=== PATIENT | female | born 1960 | race African-American/Black ===

== ENCOUNTER 2016-07-10 16:01 | Emergency (ER) | payer OTHER ==
[~2016-07-10] VITALS: Ht 172.7 cm; Wt 86.2 kg
--- NOTE | 2016-07-10 16:32 | ED NECK/BACK PAIN COMPLAINT ---
History of Present Illness General Chief Complaint: Lower Extremity Problems Stated Complaint: PT IS HAVING LOWER BACK PAIN Source: patient Exam Limitations: no limitations Vital Signs & Intake/Output Vital Signs & Intake/Output Vital Signs Date Time Temp Pulse Resp B/P B/P Pulse O2 O2 Flow FiO2 Mean Ox Delivery Rate 07/10 1851 97.9 71 18 154/75 97 Room Air 07/10 1617 97.2 92 18 147/93 97 Room Air Allergies Coded Allergies: No Known Allergies (07/10/16) Reconcile Medications Aspirin (Ecotrin*) 81 MG TABLET.DR 1 TAB PO QPM HEART/BLOOD (Reported) Bupropion HCl (Bupropion HCl Sr) 150 MG TABLET.ER 1 TAB PO BID MENTAL HEALTH (Reported) Cyclobenzaprine HCl 10 MG TABLET 1 TAB PO TID PRN MUSCLE RELAXER (Reported) Cyclobenzaprine HCl 10 MG TABLET 1 TAB PO QPM PRN MUSCLE RELAXOR Escitalopram Oxalate 10 MG TABLET 1 TAB PO DAILY MENTAL HEALTH (Reported) Gabapentin 300 MG CAPSULE 1 CAP PO TID PRN NERVE PAIN (Reported) Ketorolac Tromethamine 10 MG TABLET 1 TAB PO TID PRN PAIN Meloxicam 15 MG TABLET 1 TAB PO DAILY PAIN/INFLAMMATION (Reported) Metformin HCl 1,000 MG TABLET 1 TAB PO BID DM (Reported) Oxycodone HCl/Acetaminophen (Percocet 5-325 MG Tablet) 5 MG-325 MG TABLET 1 TAB PO BID PRN PAIN Simvastatin (Simvastatin*) 40 MG TABLET 1 TAB PO QPM CHOLESTEROL (Reported) Topiramate 100 MG TABLET 1 TAB PO BID MENTAL HEALTH (Reported) Triage Note: PT STATES THAT SHE HAS HISTORY OF SPINAL FUSION AND THAT FOR THE PAST YEAR AFTER SURGERY SHE HAS HAD PAIN THAT HAS BEEN INCREASING , STATES THAT TODAY HER R LEG GAVE OUT AND SHE FELL. DENIES URINARY OR BOWEL INCONTINENCE. TOOK MUSCLE RELAXER AND GABAPENTIN Triage Nurses Notes Reviewed? yes Onset: Abrupt Duration: constant Timing: single episode today Location: paraspinous muscles Radiation: buttocks, upper legs, lower legs, feet Method of Injury: fall Loss of Consciousness: no loss of consciousness HPI: Patient is a 55-year-old female with a past medical history of 2014 lumbar laminectomy and a one year ago history of a lumbar spinal fusion where she has had persistent right lower extremity numbness since. Patient states that she's had persistent low back pain for many years however today on the shower she bent over slipped and braced her fall with the hot and cold water dials where she subsequently fell to her buttock region. Patient states that she needed help from her daughter to arise up. Patient denies any preceding episodes of lightheaded sensation or dizziness. Denies any head strike or cervical spine pain. Patient states that her right lower extremity numbness is persistent denies any bowel or bladder incontinence or saddle paresthesia. (SALVADOR YANEZ) Past History Travel History Traveled to [place] past 21 day No Medical History Any Pertinent Medical History? see below for history Neurological: NONE EENT: NONE Cardiovascular: hyperlipidemia Respiratory: NONE Gastrointestinal: NONE Hepatic: NONE Renal: NONE Musculoskeletal: NONE Psychiatric: NONE Endocrine: diabetes Blood Disorders: NONE Cancer(s): NONE DIRECTOR PROJECT MANAGEMENT/Reproductive: NONE Surgical History Surgical History: laminectomy, L/S FUSION Psychosocial History What is your primary language Icelandic Tobacco Use: Never used ETOH Use: denies use Illicit Drug Use: denies illicit drug use Family History Hx Contributory? No (SALVADOR YANEZ) Review of Systems Review of Systems Constitutional: Reports: no symptoms. Eyes: Reports: no symptoms. Ears, Nose, Throat, Mouth: Reports: no symptoms. Respiratory: Reports: no symptoms. Cardiovascular: Reports: no symptoms. Gastrointestinal/Abdominal: Reports: no symptoms. Musculoskeletal: Reports: see HPI, back pain. Skin: Reports: no symptoms. Neurological/Psychological: Reports: see HPI. All Other Systems: Reviewed and Negative (SALVADOR YANEZ) Physical Exam Physical Exam General Appearance: mild distress Neck: normal inspection, supple, full range of motion Comments: HEENT: Normal EENT exam, Neck: Supple, no lymphadenopathy, normal range of motion without pain or tenderness Back: Inspection noted for a well-healing sagittal scar incision otherwise normal inspection, generalized lumbar spine point tenderness noted decreased active range of motion noted Cardiovascular: Regular rate and rhythms no murmurs rubs or gallops, normal JVP Respiratory: Chest nontender. No respiratory distress.breath sounds clear to auscultation bilaterally Abdomen: Soft, nontender nondistended, no appreciable organomegaly. Normal bowel sounds. No ascites Extremity: No edema, no calf tenderness to palpation, normal and equal pulses. Bilateral lower extremity dermatomes decreased sensation to the right lower extremity compared bilaterally to the left Bilateral lower extremity myotomes intact DTRs intact Neuro: Alert oriented x3, motor sensory normal Skin: No appreciable rash on exposed skin, skin is warm and dry. Psych: Mood and affect is normal, memory and judgment is normal. (SALVADOR YANEZ) Progress Differential Diagnosis: AAA, aortic dissection, C spine injury, carotid dissection, cauda equina syn, herniated disc, myofascial strain, pyelo/UTI, sciatica, spinal cord inj, thoracic outlet syn, T/L spine injury, ureterolithiasis Plan of Care: Orders Procedure Date/time Status XRY-LUMBOSACRAL SPINE 4 VIEWS 07/10 1640 Active Current Medications Sig/Linda Start time Last Medication Dose Stop Time Status Admin Dexamethasone 8 MG ONCE ONE 07/10 1699 UNVr (Decadron) 07/10 1700 Ketorolac 30 MG ONCE ONE 07/10 1699 UNVr Tromethamine 07/10 1700 (Toradol) Oxycodone/ 1 TAB ONCE ONE 07/10 1699 UNVr Acetaminophen 07/10 1700 (Percocet) Patient has no osseous injury noted on x-rays for fracture or hardware impairment. Patient has normal steady gait and no muscular or vascular compromise on exam. Patient also had significant resolution of pain with medications. Patient was strongly advised to follow-up with surgeon she was given a cane for fall prevention prescription Patient on initial exam was tearful not because of pain but for the fact that she is concerned that the lumbar fusion did not improve her symptoms and she is concerned about becoming wheelchair-bound. I discussed and stressed the importance of close monitoring with the surgeon. Upon discharge patient looks well no apparent distress Patient also states that in the first half of July she has a follow-up appointment and a new establishment with a primary care doctor AND I strongly advised patient to follow up (SALVADOR YANEZ) Diagnostic Imaging: Viewed by Me: Radiology Read. Radiology Impression: no acute abnormality Comments: PATIENT: MANUEL HAM PRESENT AGE: 55 PATIENT ACCOUNT NO: [id number] : 61 LOCATION: [facility] ORDERING PHYSICIAN: SALVADOR MONET SERVICE DATE: 07/10/16 EXAM TYPE: RAD - XRY-LUMBOSACRAL SPINE 4 VIEWS EXAMINATION: XR LUMBOSACRAL SPINE CLINICAL INFORMATION: Fall. Status post lumbar fusion. COMPARISON: None TECHNIQUE: AP lateral. Cone-down lumbosacral junction view is PA and lateral FINDINGS: Transpedicular screws fusing L4-S1. Laminectomy L4-L5 and L5-S1. Disc spacers at L4-L5 and L5-S1. No acute abnormality. Vertebrae have normal height. Vertebrae are normal in alignment. Sacroiliac joints are normal. IMPRESSION: 1. Status post fusion L4-S1 with disc spacers at L4-L5 and L5-S1. Status post laminectomy. 2. No acute abnormality of the spine. (SALVADOR YANEZ) Departure Departure Disposition: HOME OR SELF CARE Condition: Stable Clinical Impression Primary Impression: Low back pain Secondary Impressions: Lumbar radiculopathy Referrals: PATIENT HAS NO PRIMARY CARE DR (PCP/Family) Additional Instructions: As discussed begin the prescription of ketorolac for pain and inflammation, cyclobenzaprine for muscle relaxation, and Percocet for breakthrough pain relief. Begin the prescription of the cane for fall prevention,, please obtain this at a biomedical equipment specialist store. Please follow-up with your surgeon this week and please follow-up with your established primary care doctor next week as you have an appointment. If symptoms worsen return to emergency room Departure Forms: Customer Survey General Discharge Information Prescriptions: Current Visit Scripts Oxycodone HCl/Acetaminophen (Percocet 5-325 MG Tablet) 1 TAB PO BID PRN PAIN #10 TAB Cyclobenzaprine HCl 1 TAB PO QPM PRN MUSCLE RELAXOR #10 TAB Ketorolac Tromethamine 1 TAB PO TID PRN PAIN #15 TAB (SALVADOR YANEZ) PA/SAVINGS TELLER Co-Sign Statement Statement: ED Attending supervision documentation- [] I saw and evaluated the patient. I have also reviewed all the pertinent lab results and diagnostic results. I agree with the findings and the plan of care as documented in the PA's/SAVINGS TELLER's documentation. [X] I have reviewed the ED Record and agree with the PA's/SAVINGS TELLER's documentation. [] Additions or exceptions (if any) to the PAs/SAVINGS TELLER's note and plan are summarized below: [] (KANG REYNA,VI Bautista)
--- NOTE | 2016-07-10 17:56 | RADIOLOGY REPORT ---
EXAMINATION: XR LUMBOSACRAL SPINE CLINICAL INFORMATION: Fall. Status post lumbar fusion. COMPARISON: None TECHNIQUE: AP lateral. Cone-down lumbosacral junction view is PA and lateral FINDINGS: Transpedicular screws fusing L4-S1. Laminectomy L4-L5 and L5-S1. Disc spacers at L4-L5 and L5-S1. No acute abnormality. Vertebrae have normal height. Vertebrae are normal in alignment. Sacroiliac joints are normal. IMPRESSION: 1. Status post fusion L4-S1 with disc spacers at L4-L5 and L5-S1. Status post laminectomy. 2. No acute abnormality of the spine.
[2016-07-10] MEDS ORDERED: CYCLOBENZAPRINE10 M1 PO ×2 (18:13→18:39)
[2016-07-10] MEDS ORDERED: SIMVASTATIN40 M1 PO (18:13)
[2016-07-10] MEDS ORDERED: METFORMIN HCL1000 M1 PO (18:13)
[2016-07-10] MEDS ORDERED: GABAPENTIN300 M2 PO (18:14)
[2016-07-10] MEDS ORDERED: BUPROPION HCL150 M4 PO (18:14)
[2016-07-10] MEDS ORDERED: ESCITALOPRAM OX10 MG PO (18:14)
[2016-07-10] MEDS ORDERED: MELOXICAM15 M1 PO (18:14)
[2016-07-10] MEDS ORDERED: TOPIRAMATE100 M2 PO (18:15)
[2016-07-10] MEDS ORDERED: ASPIRIN EC81 M1 PO (18:15)
[2016-07-10] MEDS ORDERED: PERCOCET 5-3251 EACH PO (18:39)
[2016-07-10] MEDS ORDERED: KETOROLAC TROME10 M1 PO (18:39)
[2016-07-10 18:51] VITALS: BP 154/75
== END 2016-07-10 18:52 ==
LOC: ERH 16:01
DX: M54.5 Low back pain (principal); M54.16 Radiculopathy, lumbar region
CPT/HCPCS: 72110; 96372; J1885